=== PATIENT | male | born 1980 | race Caucasian/White ===

== ENCOUNTER 2022-07-12 10:06 | Emergency (ER) | payer MEDICAID ==
[~2022-07-12] VITALS: Ht 172.7 cm; Wt 92.0 kg
[2022-07-12 10:13] VITALS: BP 132/77
== END 2022-07-12 12:24 | disposition home or self-care (01) ==
LOC: ER 10:06
DX: R21 Rash and other nonspecific skin eruption (principal); Z98.890 Other specified postprocedural states
CPT/HCPCS: 99281